=== PATIENT | female | born 1990 | race Caucasian/White ===

== ENCOUNTER 2022-05-10 12:02 | Inpatient (IN) ==
[2022-05-10] MEDS ORDERED: Lactated Ringers 1000 ml BAG 1,000 ML IV ONE ×2 (12:24→18:49)
[2022-05-10] MEDS ORDERED: Oxytocin in LR 20,000 MILLI.UNIT/1,000 ML BAG IV SCH ×2 (12:30→21:15)
[2022-05-10] MEDS: Ondansetron 4 mg VIAL 2 MG/ML 2 ml VIAL IV PRN ×2 (13:38→17:56)
[2022-05-10 13:58] LABS: ABS Lymphocytes 1.6 10^3/ul (1.0-4.8); ABS Monocytes 0.7 10^3/ul (0-0.8); ABS Neutrophils 8.4 10^3/ul (1.5-7.7); Eosinophil % 0.2 %; Hematocrit 29 % (35-47); Lymphocyte % 14.8 %; Mean Corpuscular HGB Conc 35 g/dL (31-36); Mean Corpuscular Hemoglobin 28 pg (27-31); Mean Corpuscular Volume 81 fL (80-97); Mean Platelet Volume 8.4 fL (7.4-10.4); Platelet Count 339 10^3/uL (150-450); Red Blood Count 3.59 10^6 /uL (3.70-4.87); Red Cell Distribution Width 15 % (10-15); White Blood Count 10.7 10^3/uL (3.5-10.8)
[2022-05-10 15:50] LABS: Urine Benzodiazepine Screen None Detected (None Detect); Urine Cannabinoids Screen None Detected (None Detect); Urine Opiates Screen None Detected (None Detect)
[2022-05-10] MEDS: Lactated Ringers 1000 ml BAG 1,000 ML IV SCH ×2 (15:57→18:31)
[2022-05-10] MEDS ORDERED: Lidocaine 1% w EPI 1:200,000 SDV 30 ML VIAL ONE (18:02)
[2022-05-10] MEDS ORDERED: OBEPIDURAL (200 ML) 200 ML EPIDURAL ONE (18:02)
[2022-05-10] MEDS ORDERED: Lactated Ringers 500 ml BAG 500 ML IV PRN (18:47)
[2022-05-10] MEDS ORDERED: Sodium Citrate/Citric Acid LIQ 15 ML UDC PO PRN (18:49)
[2022-05-10] MEDS ORDERED: Phenylephrine 40 mcg/mL 10mL (400mcg) SYRINGE IV PUSH PRN ×2 (18:49)
[2022-05-10] MEDS ORDERED: Lactated Ringers 1000 ml BAG 1,000 ML IV SCH ×2 (19:00→22:00)
[2022-05-10] MEDS ORDERED: OBEPIDURAL (200 ML) 200 ML EPIDURAL SCH ×2 (19:00)
[2022-05-10 19:39] LABS: Urine Appearance Clear; Urine Bilirubin Negative (Negative); Urine Blood Trace (Intact) (Negative); Urine Color Yellow; Urine Glucose Negative (Negative); Urine Ketones 1+ (15mg/dL) (Negative); Urine Specific Gravity 1.015 (1.005-1.030); Urine pH 8.5 (5.0-9.0)
[2022-05-10 19:40] LABS: Urine Nitrite Negative (Negative); Urine Protein Trace (Negative)
[2022-05-10 19:49] LABS: Urine Bacteria Absent (Absent); Urine Red Blood Cell 2+(6-10/hpf) (Absent); Urine Squamous Epithelial Cell Present (Absent); Urine White Blood Cell Trace(0-5/hpf) (Absent)
[2022-05-10] MEDS ORDERED: Witch Hazel PAD JAR TOPICAL PRN (21:06)
[2022-05-10] MEDS ORDERED: Dibucaine 1% OINT 28.35 GM TUBE PR PRN (21:06)
[2022-05-11 06:23] LABS: ABS Eosinophils 0.1 10^3/ul (0-0.6); ABS Lymphocytes 2.2 10^3/ul (1.0-4.8); ABS Monocytes 0.6 10^3/ul (0-0.8); ABS Neutrophils 6.9 10^3/ul (1.5-7.7); Eosinophil % 0.7 %; Hematocrit 29 % (35-47); Lymphocyte % 22.5 %; Mean Corpuscular HGB Conc 31 g/dL (31-36); Mean Corpuscular Hemoglobin 26 pg (27-31); Mean Corpuscular Volume 82 fL (80-97); Mean Platelet Volume 8.5 fL (7.4-10.4); Nucleated Red Blood Cells % 0.1; Platelet Count 303 10^3/uL (150-450); Red Cell Distribution Width 15 % (10-15); White Blood Count 9.9 10^3/uL (3.5-10.8)
[2022-05-11] MEDS ORDERED: Measles, Mumps,Rubella VACC 0.5 ML/VIAL SUBCUT ONE (09:00)
[2022-05-12 08:20] VITALS: BP 99/57
[2022-05-12] MEDS ORDERED: Measles, Mumps,Rubella VACC 0.5 ML/VIAL ONE (08:25)
[2022-05-12] MEDS ORDERED: medroxyPROGESTERone ACETATE 150 MG/ML VIAL IM ONE (09:40)
== END 2022-05-12 11:14 | disposition home or self-care (01) | DRG 560 ==
LOC: MCHOBOUT 12:02 → MCHOB 12:10
PROVIDERS: ADMIT Midwife; ATTEND Midwife